=== PATIENT | male | born 1980 | race Caucasian/White ===

== ENCOUNTER 2019-03-20 10:09 | Emergency (ER) | payer OTHER ==
[~2019-03-20] VITALS: Ht 172.7 cm; Wt 72.6 kg
[~2019-03-20 10:09] MED LIST: ALBIPROI INH; BENTYL20 MG PO; CEPH500 PO; CRUTCH2 USE; CRUTCH4 USE; CYCL10 PO; DIPATR PO; DIVA500EC PO; Flomax0.4 MG PO; HYDACE5 PO; HYDACE5325 PO; IBUP600 PO; MAGIC MOUTHWASH; Mobic7.5 MG PO; NAPR500 PO; Naprosyn500 MG PO; PENVK250 PO; PRED20 PO; PROM25 PO; Pepcid40 MG PO; Peridex480 ML SS; RXHYDACE PO; RXTRAM50 PO; SIME80CH PO; SULTRIDS PO; TRAM50 PO; TRIM250 PO; Ultram50 MG PO; VALA500 PO
[2019-03-20 11:22] LABS: BASOPHILS ABSOLUTE AUTO 0.06 K/mm3 (0.00-0.23); BASOPHILS PERCENT AUTO 1 % (0-2); EOSINOPHILS ABSOLUTE AUTO 0.08 K/mm3 (0.00-0.68); EOSINOPHILS PERCENT AUTO 1 % (0-6); Hematocrit 46.1 % (37.0-53.0); Hemoglobin 15.1 g/dL (13.5-17.5); IMMATURE GRAN ABSOLUTE AUTO 0.08 K/mm3 (0.00-0.10); IMMATURE GRAN PERCENT AUTO 1 % (0-1); LYMPHOCYTES ABSOLUTE AUTO 1.65 K/mm3 (0.84-5.20); LYMPHOCYTES PERCENT AUTO 13 % (21-46); MONOCYTES ABSOLUTE AUTO 0.69 K/mm3 (0.16-1.47); MONOCYTES PERCENT AUTO 5 % (4-13); Mean Corpuscular HGB 31.6 pg (26.0-34.0); Mean Corpuscular HGB Conc 32.8 g/dL (31.5-36.5); Mean Corpuscular Volume 96 fL (80-100); Mean Platelet Volume 9.1 fL (9.1-12.4); NEUTROPHILS ABSOLUTE AUTO 10.16 K/mm3 (1.96-9.15); NEUTROPHILS PERCENT AUTO 80 % (41-73); Platelet Count 238 K/mm3 (150-400); RDW Coefficient Variation 12.6 % (11.7-14.2); RDW Standard Deviation 45.4 fL (35.1-46.3); Red Blood Cell Count 4.78 M/mm3 (4.30-5.90); White Blood Cell Count 12.72 K/mm3 (4.00-11.30)
[2019-03-20 11:52] LABS: Anion Gap 7 mmol/L (6-16); Blood Urea Nitrogen 15 mg/dL (8-24); Bun/Creatinine Ratio 23.1 (12.0-20.0); CO2, Blood 23 mmol/L (21-32); Calcium, Blood 8.7 mg/dL (8.5-10.1); Chloride, Blood 107 mmol/L (98-108); Creatinine, Blood 0.65 mg/dL (0.60-1.20); Glomerular Filtration Rate >60 (60-); Glucose, Blood 72 mg/dL (70-99); Potassium, Blood 3.5 mmol/L (3.5-5.5); Sodium, Blood 137 mmol/L (136-145)
[2019-04-25] MEDS ORDERED: COMPAZINE10 MG PO (18:49)
== END 2019-03-20 13:46 | disposition home or self-care (01) ==
LOC: ER 10:09
PROVIDERS: Physician Assistant
DX: M79.81 Nontraumatic hematoma of soft tissue (principal); Z87.891 Personal history of nicotine dependence
CPT/HCPCS: 36415; 76536; 80048; 85025; 96374; 99284-25; A9270-GY; J1885

== ENCOUNTER 2019-04-17 15:15 | Emergency (ER) | payer OTHER ==
[~2019-04-17] VITALS: Ht 172.7 cm; Wt 72.6 kg
[2019-04-17] MEDS ORDERED: Robaxin-750750 MG PO (22:29)
[2019-04-25] MEDS ORDERED: COMPAZINE10 MG PO (18:49)
== END 2019-04-17 22:48 | disposition home or self-care (01) ==
LOC: ER 15:15
DX: M62.830 Muscle spasm of back (principal); M40.202 Unspecified kyphosis, cervical region; F17.200 Nicotine dependence, unspecified, uncomplicated
CPT/HCPCS: 72126; 99283-25; Q9967

== ENCOUNTER 2019-05-08 18:06 | Emergency (ER) | payer OTHER ==
[~2019-05-08] VITALS: Ht 175.3 cm; Wt 74.8 kg
[~2019-05-08 18:06] MED LIST changes: +COMPAZINE10 MG PO; +Robaxin-750750 MG PO
[2019-05-08] MEDS ORDERED: IBUP400 PO (19:34)
== END 2019-05-08 19:43 | disposition home or self-care (01) ==
LOC: ER 18:06
DX: F20.9 Schizophrenia, unspecified (principal); F17.200 Nicotine dependence, unspecified, uncomplicated
CPT/HCPCS: 70250; 99284-25; A9270

== ENCOUNTER 2019-05-10 13:20 | Emergency (ER) | payer OTHER ==
[~2019-05-10] VITALS: Ht 172.7 cm; Wt 74.8 kg
[~2019-05-10 13:20] MED LIST changes: +IBUP400 PO
== END 2019-05-10 14:02 ==
LOC: ER 13:20
DX: M54.2 Cervicalgia (principal); G89.29 Other chronic pain; F91.9 Conduct disorder, unspecified; F17.290 Nicotine dependence, other tobacco product, uncomplicated
CPT/HCPCS: 99284

== ENCOUNTER 2019-10-04 09:58 | Emergency (ER) | payer OTHER ==
[~2019-10-04] VITALS: Ht 172.7 cm; Wt 72.6 kg
[2019-10-04 11:32] LABS: BASOPHILS ABSOLUTE AUTO 0.06 K/mm3 (0.00-0.23); BASOPHILS PERCENT AUTO 0 % (0-2); EOSINOPHILS ABSOLUTE AUTO 0.13 K/mm3 (0.00-0.68); EOSINOPHILS PERCENT AUTO 1 % (0-6); Hematocrit 45.6 % (37.0-53.0); Hemoglobin 14.6 g/dL (13.5-17.5); IMMATURE GRAN ABSOLUTE AUTO 0.08 K/mm3 (0.00-0.10); IMMATURE GRAN PERCENT AUTO 1 % (0-1); LYMPHOCYTES ABSOLUTE AUTO 1.69 K/mm3 (0.84-5.20); LYMPHOCYTES PERCENT AUTO 10 % (21-46); MONOCYTES ABSOLUTE AUTO 1.46 K/mm3 (0.16-1.47); MONOCYTES PERCENT AUTO 9 % (4-13); Mean Corpuscular HGB 30.9 pg (26.0-34.0); Mean Corpuscular Volume 97 fL (80-100); Mean Platelet Volume 9.4 fL (9.1-12.4); NEUTROPHILS ABSOLUTE AUTO 13.72 K/mm3 (1.96-9.15); NEUTROPHILS PERCENT AUTO 80 % (41-73); Platelet Count 254 K/mm3 (150-400); RDW Coefficient Variation 12.4 % (11.7-14.2); RDW Standard Deviation 44.7 fL (35.1-46.3); Red Blood Cell Count 4.72 M/mm3 (4.30-5.90); White Blood Cell Count 17.14 K/mm3 (4.00-11.30)
[2019-10-04 11:43] LABS: Anion Gap 4 mmol/L (6-16); Blood Urea Nitrogen 18 mg/dL (8-24); Bun/Creatinine Ratio 25.3 (12.0-20.0); CO2, Blood 29 mmol/L (21-32); Calcium, Blood 8.6 mg/dL (8.5-10.1); Chloride, Blood 104 mmol/L (98-108); Creatinine, Blood 0.71 mg/dL (0.60-1.20); Glomerular Filtration Rate >60 (60-); Glucose, Blood 86 mg/dL (70-99); Potassium, Blood 3.8 mmol/L (3.5-5.5); Sodium, Blood 137 mmol/L (136-145)
[2019-10-04] MEDS ORDERED: Cleocin HCl150 MG PO (13:16)
[2019-10-04] MEDS ORDERED: IBUP800 PO (13:16)
== END 2019-10-04 14:37 | disposition home or self-care (01) ==
LOC: ER 09:58
PROVIDERS: Emergency Medicine
DX: L03.116 Cellulitis of left lower limb (principal); F12.10 Cannabis abuse, uncomplicated; F15.10 Other stimulant abuse, uncomplicated; Z86.14 Personal history of Methicillin resistant Staphylococcus aureus infection; F17.200 Nicotine dependence, unspecified, uncomplicated
CPT/HCPCS: 36415; 73630; 80048; 85025; 96361; 96365; 99284-25; J1885; J7030

== ENCOUNTER 2020-03-16 00:35 | Emergency (ER) | payer SELFPAY ==
[~2020-03-16] VITALS: Ht 172.7 cm; Wt 72.6 kg
[~2020-03-16 00:35] MED LIST changes: +Cleocin HCl150 MG PO; +IBUP800 PO
[2020-03-16] MEDS ORDERED: Bactrim Ds Tab1 EACH PO (01:29)
[2020-03-16] MEDS ORDERED: CEPH500 PO (01:29)
== END 2020-03-16 01:58 | disposition home or self-care (01) ==
LOC: ER 00:35
DX: L03.811 Cellulitis of head [any part, except face] (principal)
CPT/HCPCS: 99282; A9270-GY

== ENCOUNTER 2020-03-27 17:04 | Emergency (ER) | payer OTHER ==
[~2020-03-27] VITALS: Ht 172.7 cm; Wt 74.8 kg
[~2020-03-27 17:04] MED LIST changes: +Bactrim Ds Tab1 EACH PO
== END 2020-03-27 18:07 | disposition left against medical advice (07) ==
LOC: ER 17:04
DX: L02.11 Cutaneous abscess of neck (principal); F20.9 Schizophrenia, unspecified; Z86.19 Personal history of other infectious and parasitic diseases; Z86.14 Personal history of Methicillin resistant Staphylococcus aureus infection; Z79.2 Long term (current) use of antibiotics; F17.200 Nicotine dependence, unspecified, uncomplicated
CPT/HCPCS: 10060; 99283-25

== ENCOUNTER 2020-04-08 10:58 | Emergency (ER) | payer OTHER ==
[~2020-04-08] VITALS: Ht 172.7 cm; Wt 74.8 kg
[~2020-04-08 10:58] MED LIST changes: +Vibramycin100 MG PO
[2020-04-08 12:12] LABS: BASOPHILS ABSOLUTE AUTO 0.08 K/mm3 (0.00-0.23); BASOPHILS PERCENT AUTO 1 % (0-2); EOSINOPHILS ABSOLUTE AUTO 0.21 K/mm3 (0.00-0.68); EOSINOPHILS PERCENT AUTO 2 % (0-6); Hematocrit 45.6 % (37.0-53.0); Hemoglobin 14.9 g/dL (13.5-17.5); IMMATURE GRAN ABSOLUTE AUTO 0.03 K/mm3 (0.00-0.10); IMMATURE GRAN PERCENT AUTO 0 % (0-1); LYMPHOCYTES ABSOLUTE AUTO 1.93 K/mm3 (0.84-5.20); LYMPHOCYTES PERCENT AUTO 18 % (21-46); MONOCYTES ABSOLUTE AUTO 1.01 K/mm3 (0.16-1.47); MONOCYTES PERCENT AUTO 10 % (4-13); Mean Corpuscular HGB 31.6 pg (26.0-34.0); Mean Corpuscular HGB Conc 32.7 g/dL (31.5-36.5); Mean Corpuscular Volume 97 fL (80-100); Mean Platelet Volume 8.8 fL (9.1-12.4); NEUTROPHILS ABSOLUTE AUTO 7.41 K/mm3 (1.96-9.15); NEUTROPHILS PERCENT AUTO 69 % (41-73); Platelet Count 245 K/mm3 (150-400); RDW Coefficient Variation 12.1 % (11.7-14.2); RDW Standard Deviation 43.4 fL (35.1-46.3); Red Blood Cell Count 4.71 M/mm3 (4.30-5.90); White Blood Cell Count 10.67 K/mm3 (4.00-11.30)
[2020-04-08 12:34] LABS: Alanine Aminotransfer (ALT/SGP 48 U/L (12-78); Albumin, Blood 3.7 g/dL (3.4-5.0); Albumin/Globulin Ratio 1.1 (0.8-1.8); Alk Phos 177 U/L (50-136); Anion Gap 4 mmol/L (6-16); Aspartate Aminotrans (AST/SGOT 30 U/L (12-37); Bilirubin, Total 0.4 mg/dL (0.1-1.0); Blood Urea Nitrogen 15 mg/dL (8-24); Bun/Creatinine Ratio 21.6 (12.0-20.0); CO2, Blood 30 mmol/L (21-32); Calcium, Blood 8.8 mg/dL (8.5-10.1); Chloride, Blood 108 mmol/L (98-108); Creatinine, Blood 0.69 mg/dL (0.60-1.20); Globulin, Blood 3.4 g/dL (2.2-4.0); Glomerular Filtration Rate >60 (60-); Glucose, Blood 90 mg/dL (70-99); Sodium, Blood 142 mmol/L (136-145); Total Protein, Blood 7.1 g/dL (6.4-8.2)
[2020-04-08] MEDS ORDERED: Bactrim Ds Tab1 EACH PO (15:33)
[2020-04-08] MEDS ORDERED: CEPH500 PO (15:33)
== END 2020-04-08 15:50 | disposition home or self-care (01) ==
LOC: ER 10:58
PROVIDERS: Physician Assistant
DX: L03.113 Cellulitis of right upper limb (principal); F17.210 Nicotine dependence, cigarettes, uncomplicated; Z86.14 Personal history of Methicillin resistant Staphylococcus aureus infection
CPT/HCPCS: 36415; 73201; 80053; 83605; 85025; 87070; 87075; 87077; 87147; 87186; 87205; 96365-59; 96366; 99284-25; A9270-GY; J3370; Q9967

== ENCOUNTER 2020-04-09 09:28 | Emergency (ER) | payer OTHER ==
[~2020-04-09] VITALS: Ht 172.7 cm; Wt 72.6 kg
== END 2020-04-09 12:00 | disposition home or self-care (01) ==
LOC: ER 09:28
DX: L03.113 Cellulitis of right upper limb (principal); F17.210 Nicotine dependence, cigarettes, uncomplicated
CPT/HCPCS: 99283; A9270

== ENCOUNTER 2020-06-06 18:39 | Emergency (ER) | payer OTHER ==
[~2020-06-06] VITALS: Ht 175.3 cm; Wt 72.6 kg
[2020-06-06] MEDS ORDERED: IBUP600 PO (22:29)
== END 2020-06-06 22:47 | disposition home or self-care (01) ==
LOC: ER 18:39
DX: S92.342A Displaced fracture of fourth metatarsal bone, left foot, initial encounter for closed fracture (principal); S92.352A Displaced fracture of fifth metatarsal bone, left foot, initial encounter for closed fracture; F17.200 Nicotine dependence, unspecified, uncomplicated; X58.XXXA Exposure to other specified factors, initial encounter
CPT/HCPCS: 73630; 99283-25; A9270-GY

== ENCOUNTER 2020-06-17 11:49 | Emergency (ER) | payer OTHER ==
[~2020-06-17] VITALS: Ht 172.7 cm; Wt 72.6 kg
[2020-06-17] MEDS ORDERED: CRUTCH4 XX (14:11)
[2020-06-17] MEDS ORDERED: NAPR550 PO (14:11)
== END 2020-06-17 14:30 | disposition home or self-care (01) ==
LOC: ER 11:49
DX: S92.342A Displaced fracture of fourth metatarsal bone, left foot, initial encounter for closed fracture (principal); S92.352A Displaced fracture of fifth metatarsal bone, left foot, initial encounter for closed fracture; F25.9 Schizoaffective disorder, unspecified; F17.200 Nicotine dependence, unspecified, uncomplicated; X58.XXXA Exposure to other specified factors, initial encounter; Y93.01 Activity, walking, marching and hiking
CPT/HCPCS: 73630; 99283-25

== ENCOUNTER 2021-08-23 15:20 | Emergency (ER) | payer OTHER ==
[~2021-08-23] VITALS: Ht 175.3 cm; Wt 72.6 kg
[~2021-08-23 15:20] MED LIST changes: +CRUTCH4 XX; +NAPR550 PO
== END 2021-08-23 16:27 | disposition home or self-care (01) ==
LOC: ER 15:20
DX: S50.01XA Contusion of right elbow, initial encounter (principal); J31.0 Chronic rhinitis; F17.200 Nicotine dependence, unspecified, uncomplicated; X58.XXXA Exposure to other specified factors, initial encounter
CPT/HCPCS: 73080; 99283-25; A9270

== ENCOUNTER 2021-09-08 10:24 | Emergency (ER) | payer OTHER ==
[~2021-09-08] VITALS: Ht 175.3 cm; Wt 72.6 kg
== END 2021-09-08 11:57 | disposition home or self-care (01) ==
LOC: ER 10:24
DX: M25.521 Pain in right elbow (principal); F19.10 Other psychoactive substance abuse, uncomplicated; F17.200 Nicotine dependence, unspecified, uncomplicated
CPT/HCPCS: 99283

== ENCOUNTER 2021-09-15 16:07 | Emergency (ER) | payer OTHER ==
[~2021-09-15] VITALS: Ht 175.3 cm; Wt 72.6 kg
== END 2021-09-15 18:11 | disposition home or self-care (01) ==
LOC: ER 16:07
DX: M25.521 Pain in right elbow (principal); F17.200 Nicotine dependence, unspecified, uncomplicated
CPT/HCPCS: 73080; 99283-25

== ENCOUNTER 2021-09-22 15:26 | Emergency (ER) | payer OTHER ==
[~2021-09-22] VITALS: Ht 172.7 cm; Wt 72.6 kg
== END 2021-09-22 18:38 | disposition home or self-care (01) ==
LOC: ER 15:26
DX: S50.01XA Contusion of right elbow, initial encounter (principal); W22.8XXA Striking against or struck by other objects, initial encounter; F17.200 Nicotine dependence, unspecified, uncomplicated
CPT/HCPCS: 99283

== ENCOUNTER 2021-09-26 03:10 | Emergency (ER) | payer OTHER ==
[~2021-09-26] VITALS: Ht 172.7 cm; Wt 72.6 kg
[2021-09-26] MEDS ORDERED: IBUP600 PO (05:00)
== END 2021-09-26 05:27 | disposition home or self-care (01) ==
LOC: ER 03:10
DX: S22.41XA Multiple fractures of ribs, right side, initial encounter for closed fracture (principal); W01.198A Fall on same level from slipping, tripping and stumbling with subsequent striking against other object, initial encounter; F17.290 Nicotine dependence, other tobacco product, uncomplicated
CPT/HCPCS: 71046; 71101; A9270; J1885